=== PATIENT | female | born 1955 | race Caucasian/White ===

== ENCOUNTER 2020-07-22 09:08 | Emergency (ER) | payer MEDICARE ==
[~2020-07-22] VITALS: Ht 167.6 cm; Wt 90.1 kg
--- NOTE | 2020-07-22 09:12 | PHYS DOC ---
Past History Past Medical History: Diabetes General Adult EDM: Chief Complaint: ALTERED MENTAL STATUS HPI: HPI: Patient is a 64-year-old female who arrives via EMS with chief complaint of altered mental status. History, physical, review of systems are all limited due to altered mentation. Patient was last seen normal 3 days ago and was checked on today and was found naked on her couch. Patient unable to answer any questions. Review of Systems: Review of Systems: Review of systems is unobtainable due to altered mental status Heart Score: Risk Factors: Risk Factors: DM, Current or recent (<one month) smoker, HTN, HLP, family history of CAD, obesity. Risk Scores: Score 0 - 3: 2.5% MACE over next 6 weeks - Discharge Home Score 4 - 6: 20.3% MACE over next 6 weeks - Admit for Clinical Observation Score 7 - 10: 72.7% MACE over next 6 weeks - Early Invasive Strategies Physical Exam: PE: Constitutional: Disheveled, disorganized, mild distress HENT: Normocephalic, atraumatic, bilateral external ears normal, no trismus nose normal. [] Eyes: PERRLA, EOMI, conjunctiva normal, no discharge. [] Neck: Normal range of motion, no tenderness, supple, no stridor. [] Cardiovascular: Tachycardia, peripheral pulses intact, cap refill is brisk Lungs & Thorax: decreased bs b/l, tachypnea Abdomen: Bowel sounds normal, soft, no tenderness, no masses, no pulsatile masses. [] Skin: Warm, dry, no erythema, no rash. [] Back: No tenderness, no CVA tenderness. [] Extremities: No tenderness, no cyanosis, no clubbing, ROM intact, no edema. [] Neurologic: Confused, oriented x0, unable to follow commands, moves all extremities Psychologic: Unable to assess due to altered mental status Current Patient Data: Labs: Laboratory Tests Test 07/22/20 09:15 07/22/20 09:41 07/22/20 09:53 White Blood Count 15.0 x10^3/uL Red Blood Count 4.98 x10^6/uL Hemoglobin 14.6 g/dL Hematocrit 45.3 % Mean Corpuscular Volume 91 fL Mean Corpuscular Hemoglobin 29 pg Mean Corpuscular Hemoglobin Concent 32 g/dL Red Cell Distribution Width 15.5 % Platelet Count 223 x10^3/uL Neutrophils (%) (Auto) 82 % Lymphocytes (%) (Auto) 8 % Monocytes (%) (Auto) 10 % Eosinophils (%) (Auto) 0 % Basophils (%) (Auto) 0 % Neutrophils # (Auto) 12.2 x10^3uL Lymphocytes # (Auto) 1.3 x10^3/uL Monocytes # (Auto) 1.5 x10^3/uL Eosinophils # (Auto) 0.0 x10^3/uL Basophils # (Auto) 0.0 x10^3/uL Prothrombin Time 10.6 SEC Prothromb Time International Ratio 1.0 Activated Partial Thromboplast Time 35 SEC Sodium Level 132 mmol/L Potassium Level 4.1 mmol/L Chloride Level 93 mmol/L Carbon Dioxide Level 20 mmol/L Anion Gap 19 Blood Urea Nitrogen 60 mg/dL Creatinine 2.4 mg/dL Estimated GFR (Cockcroft-Gault) 20.3 BUN/Creatinine Ratio 25 Glucose Level 339 mg/dL Lactic Acid Level 2.9 mmol/L Calcium Level 11.3 mg/dL Total Bilirubin 1.1 mg/dL Aspartate Amino Transf (AST/SGOT) 71 U/L Alanine Aminotransferase (ALT/SGPT) 28 U/L Alkaline Phosphatase 77 U/L Ammonia < 10 mcmol/L Creatine Kinase 888 U/L Troponin I Quantitative 0.715 ng/mL [id number]-Type Natriuretic Peptide 2882 pg/mL Total Protein 9.3 g/dL Albumin 3.5 g/dL Albumin/Globulin Ratio 0.6 Lipase 356 U/L Salicylates Level < 2.8 mg/dL Salicylate Last Dose Date Unknown Salicylate Last Dose Time Unknown Acetaminophen Level < 2.0 mcg/mL Acetaminophen Last Dose Date Unknown Acetaminophen Last Dose Time Unknown Ethyl Alcohol Level < 10 mg/dL Blood Gas pH 7.40 Blood Gas PCO2 27 mmHg Blood Gas PO2 74 mmHg Blood Gas HCO3 16 mmol/L Arterial Bld O2 Saturation (Calc) 94 % FiO2 100 % Urine Opiates Screen Neg Urine Methadone Screen Neg Urine Barbiturates Neg Urine Phencyclidine Screen Neg Urine Amphetamine/Methamphetamine Neg Urine Benzodiazepines Screen Neg Urine Cocaine Screen Neg Urine Cannabinoids Screen Neg Urine Ethyl Alcohol Neg Current Medications Medications (Trade) Dose Ordered Sig/Gita Route PRN Reason Start Time Stop Time Status Last Admin Dose Admin Sodium Chloride 1,000 ml @ 1,000 mls/hr 1X ONCE IV 07/22/20 09:30 07/22/20 10:29 DC 07/22/20 09:40 Lorazepam (Ativan Inj) 1 mg 1X ONCE IVP 07/22/20 09:45 07/22/20 09:53 DC 07/22/20 09:56 Piperacillin Sod/ Tazobactam Sod 3.375 gm/Sodium Chloride 50 ml @ 100 mls/hr 1X ONCE IV 07/22/20 10:15 07/22/20 10:44 DC 07/22/20 10:57 Sodium Chloride 50 ml @ As Directed STK-MED ONCE .ROUTE 07/22/20 10:15 07/22/20 10:15 DC Piperacillin Sod/ Tazobactam Sod (Zosyn) 3.375 gm STK-MED ONCE IV 07/22/20 10:15 07/22/20 10:15 DC Acetaminophen (Tylenol Supp) 650 mg 1X ONCE WA 07/22/20 10:30 07/22/20 10:31 DC 07/22/20 10:57 Vital Signs: Vital Signs Date Time Temp Pulse Resp B/P (MAP) Pulse Ox O2 Delivery O2 Flow Rate FiO2 07/22/20 09:10 99.5 135 40 149/110 (123 80 Room Air EKG: EKG: [] EKG interpreted by va sinus tach with a rate of 137 normal axis normal intervals normal ST segments Radiology/Procedures: Radiology/Procedures: [][place] [address] IMAGING REPORT Signed PATIENT: HANNAH ORANTES ACCOUNT: [id number] : 1955 LOCATION: ER AGE: 64 SEX: F EXAM STATUS: REG ER ORD. PHYSICIAN: JESUS BHATTI MD REASON: ams PROCEDURE: CT HEAD WO CONTRAST CT head without contrast 07/22/2020. Reason for exam: Altered mental status. Noncontrast images were performed. Exposure: One or more of the following individualized dose reduction techniques were utilized for this examination: 1. Automated exposure control 2. Adjustment of the mA and/or kV according to patient size 3. Use of iterative reconstruction technique. Comparison is made with a prior exam of 01/30/2009. There is no apparent intracranial mass, hemorrhage or abnormal extra-axial fluid collection. There seems to be asymmetric low-density in the left temporal lobe. This could be artifactual relating to beam hardening and motion, but edema is also a consideration. The ventricles and basilar cisterns are normally positioned. The sinuses and mastoid air cells are clear. IMPRESSION: No definite acute findings. There may be some edema in the region of the right temporal lobe, although this is favored to be artifactual. If further imaging evaluation is needed, MRI may be useful. AP portable chest 07/22/2020. Reason for exam: Altered mental status. Comparison is made with a previous study of 01/29/2009. Depth of inspiration is shallower. There is suggestion of patchy bilateral infiltrates. The left hemidiaphragm is somewhat indistinct. The heart does not appear enlarged. IMPRESSION: Patchy bilateral infiltrates. Electronically signed by: April Acuña Jr., MD (07/22/2020 10:59 AM) [facility] DICTATED AND SIGNED BY: APRIL ACUÑA Jr, MD DATE: 07/22/20 1059 CC: JESUS BHATTI MD; PCP,UNKNOWN ~ Course & Med Decision Making: Course & Med Decision Making Pertinent Labs and Imaging studies reviewed. (See chart for details) [] At 9:38 AM I was asked to reassess patient as her oxygen will drop. Patient placed on nonrebreather. Patient still very confused heart rate in the 130s, sats 93 to 94% on monitor we will get ABG. Patient will need to be medicated for imaging. 64-year-old female presents with altered mental status. Patient found to have a fever. X-ray shows bilateral patchy infiltrates. This is quite concerning for COVID-19. Patient will be placed on nonrebreather and her oxygen level is satisfactory on this. ABG shows hypoxia but no CO2 retention. Patient also has acute kidney injury and elevated lactic acid and white blood cell count. Patient given IV fluids and antibiotics. Patient also has mildly elevated troponin, this may be a stress response due to her tachycardia. Patient will need further ICU care and will accept to [facility]. Patient has no meningeal signs, I think her delirium is due to her hypoxia and her COVID. I do not think she has meningitis. After Dr. Landeros accepted to [facility], I was contacted and asked to transfer to another facility due to her having [employer]. I called [facility] and spoke with Dr. Lopez who doesn't have an ICU bed at this time. I then called [facility], and Dr. Corona accepts the transfer. Patient reassessed several times in the ER and clinically improved on nonrebreather but still encephalopathic. Patient has elevated d-dimer dose of Lovenox has been ordered. COVID-19 CRITERIA: The patient was evaluated during the global COVID-19 pandemic, and that diagnosis was suspected/considered upon their initial presentation. Their evaluation, treatment and testing was consistent with current guidelines for patients who present with complaints or symptoms that may be related to COVID-19. Critical care time was [35] minutes exclusive of procedures. Critical condition: Hypoxia bilateral pneumonia, acute renal failure, delirium, likely COVID-19 Critical interventions:, oxygen, antibiotics, fluids, admission to the ICU at [facility] Nicko Disclaimer: Nicko Disclaimer: This electronic medical record was generated, in whole or in part, using a voice recognition dictation system. Departure Departure: Impression: Primary Impression: Hypoxia Additional Impressions: Delirium Acute renal failure Elevated troponin Rhabdomyolysis Suspected COVID-19 virus infection Bilateral pneumonia Disposition: HOME/RESIDENCE PRIOR TO ADM Condition: GUARDED Justification of Admission: Justification of Admission: Justification of Admission Dx: N/A JESUS BHATTI MD Jul 22, 2020 09:12
[2020-07-22] MEDS ORDERED: IV NORMAL SALINE 1,000ML 1,000 ML IV ONE (09:30)
--- NOTE | 2020-07-22 09:30 | EKG ---
[address] [address] Test Date: 2020-07-22 Test Time: 09:16:39 Pat Name: HANNAH ORANTES Department: Room: Gender: F Nuclear Pharmacist: SHELLY : 1955 Requested By: JESUS BHATTI Order Number: [id number] Reading MD: Sergo Perez MD Measurements Intervals [place] Rate: 137 P: 44 IN: 124 QRS: 36 QRSD: 76 T: 25 QT: 280 QTc: 424 Interpretive Statements SINUS TACHYCARDIA Electronically Signed On 07-23-2020 12:55:13 CDT by Sergo Perez MD
[2020-07-22 09:37] LABS: BASO % 0 % (0-3); EOS % 0 % (0-3); HEMATOCRIT 45.3 % (36.0-47.0); HEMOGLOBIN 14.6 g/dL (12.0-15.5); LYMPH # 1.3 x10^3/uL (1.0-4.8); LYMPH % 8 % (24-48); MEAN CORPUSCULAR HEMOGLOBIN 29 pg (25-35); MEAN CORPUSCULAR HGB CONC 32 g/dL (31-37); MEAN CORPUSCULAR VOLUME 91 fL (79-100); MONO # 1.5 x10^3/uL (0.0-1.1); MONO % 10 % (0-9); NEUT # 12.2 x10^3uL (1.8-7.7); NEUT % 82 % (31-73); PLATELET COUNT 223 x10^3/uL (140-400); RED BLOOD COUNT 4.98 x10^6/uL (3.50-5.40); RED CELL DISTRIBUTION WIDTH 15.5 % (11.5-14.5)
[2020-07-22 09:56] LABS: SALIC < 2.8 mg/dL (2.8-20.0)
[2020-07-22 09:57] LABS: BGAS PH 7.4 (7.35-7.45)
[2020-07-22 09:57] LABS: ACETAMIN < 2.0 mcg/mL (10-30); ETHANOL < 10 mg/dL (0-10)
[2020-07-22 10:02] LABS: CALCIUM 11.3 mg/dL (8.5-10.1); CREATININE 2.4 mg/dL (0.6-1.0); GFR 20.3; POTASSIUM 4.1 mmol/L (3.5-5.1)
[2020-07-22 10:15] LABS: ALBUMIN 3.5 g/dL (3.4-5.0); ALBUMIN/GLOBULIN RATIO 0.6 (1.0-1.7); TOTAL BILIRUBIN 1.1 mg/dL (0.2-1.0); TOTAL PROTEIN 9.3 g/dL (6.4-8.2)
[2020-07-22] MEDS ORDERED: PIPERACILLIN/TAZOBACTAM 3.375 GM in IV NORMAL SALINE 50ML 50 ML IV ONE (10:15)
[2020-07-22] MEDS ORDERED: IV NORMAL SALINE 50ML 50 ML ONE (10:15)
[2020-07-22] MEDS ORDERED: PIPERACILLIN/TAZOBACTAM 3.375 GM VIAL IV ONE (10:15)
[2020-07-22] MEDS ORDERED: ACETAMINOPHEN 650 MG SUPP.RECT. PR ONE (10:30)
[2020-07-22 10:39] LABS: BARBITURATES NEG (NEG); BENZODIAZEPINES NEG (NEG); CANNABINOIDS NEG (NEG); COCAINE NEG (NEG); METHADONE NEG (NEG); OPIATES NEG (NEG); PHENCYCLIDINE NEG (NEG)
[2020-07-22 10:47] LABS: AMPHETAMINE/METHAMPHETAMINE NEG (NEG)
[2020-07-22] MEDS ORDERED: PREG150C PO (11:01)
[2020-07-22] MEDS ORDERED: AMAN100T PO (11:01)
[2020-07-22] MEDS ORDERED: HYDR25TA PO (11:01)
--- NOTE | 2020-07-22 11:02 | RAD ---
CT head without contrast 07/22/2020. Reason for exam: Altered mental status. Noncontrast images were performed. Exposure: One or more of the following individualized dose reduction techniques were utilized for this examination: 1. Automated exposure control 2. Adjustment of the mA and/or kV according to patient size 3. Use of iterative reconstruction technique. Comparison is made with a prior exam of 01/30/2009. There is no apparent intracranial mass, hemorrhage or abnormal extra-axial fluid collection. There seems to be asymmetric low-density in the left temporal lobe. This could be artifactual relating to beam hardening and motion, but edema is also a consideration. The ventricles and basilar cisterns are normally positioned. The sinuses and mastoid air cells are clear. IMPRESSION: No definite acute findings. There may be some edema in the region of the right temporal lobe, although this is favored to be artifactual. If further imaging evaluation is needed, MRI may be useful. AP portable chest 07/22/2020. Reason for exam: Altered mental status. Comparison is made with a previous study of 01/29/2009. Depth of inspiration is shallower. There is suggestion of patchy bilateral infiltrates. The left hemidiaphragm is somewhat indistinct. The heart does not appear enlarged. IMPRESSION: Patchy bilateral infiltrates. Electronically signed by: Jose Acuña Jr., MD (07/22/2020 10:59 AM) [facility]
[2020-07-22 11:11] LABS: BILIRUBIN,URINE NEG (NEG); CLARITY,URINE CLOUDY; COLOR,URINE AMBER; GLUCOSE,URINE NEG (NEG)
[2020-07-22 11:12] LABS: BACTERIA,URINE 0 /HPF (0-FEW); NITRITE,URINE NEG (NEG); SQUAMOUS EPITHELIAL CELL,UR FEW /LPF
[2020-07-22 11:13] LABS: AMORPHOUS SEDIMENT,UR PRESENT /HPF; GRANULAR CASTS,URINE FEW /HPF; HYALINE CASTS, URINE OCC /HPF
[2020-07-22] MEDS ORDERED: DEXAMETHASONE SOD PHOS 10 MG/ML VIAL. ONE (12:10)
[2020-07-22] MEDS ORDERED: DEXAMETHASONE SOD PHOS 10 MG/ML VIAL. IV ONE (12:15)
[2020-07-22 12:59] LABS: C REACTIVE PROTEIN 314.7 mg/L (0-3.3)
[2020-07-22] MEDS ORDERED: ENOXAPARIN ** NOTE DOSE ** SYRINGE SQ ONE (13:15)
[2020-07-22 13:27] VITALS: BP 151/76
--- NOTE | 2020-07-24 08:46 | NUR ---
IP: notified Kaila at [facility] of COVID result, faxed to unit.
== END 2020-07-22 13:38 | disposition short-term general hospital (02) ==
LOC: ER 09:08
DX: U07.1 COVID-19 (principal); J12.89 Other viral pneumonia; R09.02 Hypoxemia; R41.0 Disorientation, unspecified; R79.89 Other specified abnormal findings of blood chemistry; M62.82 Rhabdomyolysis; N17.9 Acute kidney failure, unspecified; E11.9 Type 2 diabetes mellitus without complications
CPT/HCPCS: 36415; 36600; 51702; 70450; 71045; 80053; 80307; 80329; 81001; 82140; 82550; 82803; 83605; 83615; 83690; 83880; 84443; 84466; 84484; 85025; 85379; 85610; 85730; 86140; 87040; 87086; 93005; 96361; 96365; 96372; 96375; 99291; C9803; G0480; J1100; J1650; J2060; J2543; J7030; U0003